=== PATIENT | female | born 1990 | race Caucasian/White ===

== ENCOUNTER 2024-08-11 03:09 | Emergency (ER) | payer OTHER ==
--- NOTE | 2024-08-11 03:59 | ED ---
General Adult HPI - General Chief complaint: Psychiatric Symptoms Stated complaint: Mental Health Time Seen by Provider: 08/11/24 03:26 Source: EMS Mode of arrival: EMS - History of Present Illness Initial comments: Patient is a 34-year-old female past medical history of bipolar depression presenting today for hallucinations. History is limited by patient's current psychiatric complaints and tangential thought process and speech. Per EMS report police were called to the home 4 times today by family. The patient states that she called the police 4 times because her boyfriend was calling her names and has "schizoaffective disorder and sometimes it gets out of control". Patient endorses over the last 6 months she has had worsening visual hallucinations stating that she will see a dog in the mall food ester like a person walking past her room. She understands that these are not real but they are becoming more persistent. She denies auditory hallucinations, thoughts of harming or killing herself or thoughts of harming or killing others. She believes that her increase hallucinations are due to an increase in her Effexor however when I asked her when her dose of Effexor was increased her thought process becomes tangential and she begins talking about her hypertension and lisinopril. She denies any new numbness, weakness, changes in vision, chest pain or abdominal pain. The patient herself states she does use marijuana but denies illicit drug use. EMS believe the patient has used meth today. Patient denies alcohol use. - Related Data Home Medications Medication Instructions Recorded Confirmed Divalproex Sodium [Depakote] 1 tab PO BID 05/23/14 05/23/14 Gabapentin [Neurontin] 1 tab PO QID 05/23/14 05/23/14 levETIRAcetam [Keppra] 1 tab PO BID 05/23/14 05/23/14 Allergies Allergy/AdvReac Type Severity Reaction Status Date / Time amoxicillin trihydrate Allergy Rash/Hives Verified 08/11/24 03:28 [From Augmentin] clindamycin Allergy Rash/Hives Verified 05/23/14 18:47 pineapple Allergy Anaphylaxis Verified 08/11/24 03:28 potassium clavulanate Allergy Rash/Hives Verified 08/11/24 03:28 [From Augmentin] Review of Systems ROS Statement: Those systems with pertinent positive or pertinent negative responses have been documented in the HPI. ROS Other: All systems not noted in ROS Statement are negative. Limitations: ROS unobtainable due to patients medical condition Past Medical History Past Medical History: Seizure Disorder Additional Past Medical History / Comment(s): MS History of Any Multi-Drug Resistant Organisms: None Reported Past Surgical History: Appendectomy Additional Past Surgical History / Comment(s): LEEP PROCEEDURE Past Psychological History: Bipolar Smoking Status: Vaper Past Alcohol Use History: None Reported Past Drug Use History: Marijuana General Exam - General Exam Comments Initial Comments: PE: CONSTITUTIONAL: No apparent distress, well appearing SKIN: Warm, dry, no jaundice, hives or petechiae EYES: Pupils are equally round, extraocular movements intact without nystagmus, clear conjunctiva, non-icteric sclera HENT: Normocephalic, atraumatic, moist mucus membranes, oropharynx clear without exudates NECK: , Full range of motion, normal appearance PULMONARY: Clear to auscultation without wheezes, rhonchi, or rales, normal excursion, no accessory muscle use and no stridor CARDIOVASCULAR: Regular rate, rhythm, normal S1 and S2. No appreciated murmurs, rubs or gallops. Strong radial pulses with intact distal perfusion. No lower extremity edema GASTROINTESTINAL: Soft, non-tender, non-distended, no palpable masses, no rebound or guarding. No hepatosplenomegaly GENITOURINARY: MUSCULOSKELETAL: Extremities have no gross deformity, no edema, redness, or swelling. No calf swelling ot TTP. NEUROLOGIC:_a/o x 3, GCS 15, normal mentation and speech. Moves all extremities x 4 without motor or sensory deficit PSYCHIATRIC:_normal mood and affect, thought process is tangential and disorganized, calm and cooperative, does not appear to be responding to internal stimuli Course Vital Signs 08/11/24 08/11/24 03:16 06:06 Temperature 98.7 F 98.0 F Pulse Rate 83 79 Respiratory 17 16 Rate Blood Pressure 111/90 113/78 O2 Sat by Pulse 100 94 L Oximetry Medical Decision Making - Medical Decision Making Was pt. sent in by a medical professional or institution (, PA, ECONOMIC MANAGER, urgent care, hospital, or residential...) When possible be specific @ -No Did you speak to anyone other than the patient for history (EMS, parent, family, police, friend...)? What history was obtained from this source @ -No Did you review nursing and triage notes (agree or disagree)? Why? @ -I reviewed and agree with nursing and triage notes Were old charts reviewed (outside hosp., previous admission, EMS record, old EKG, old radiological studies, urgent care reports/EKG's, residential records)? Report findings @ -No recent charts to review Differential Diagnosis (chest pain, altered mental status, abdominal pain women, abdominal pain men, vaginal bleeding, weakness, fever, dyspnea, syncope, headache, dizziness, GI bleed, back pain, seizure, CVA, palpatations, mental health, musculoskeletal)? @ -Differential Mental Health Depression, anxiety, bipolar, psychosis, schizophrenia, borderline personality, situational depression, adjustment disorder, behavioral disorder, substance abuse, medication reaction... This is not meant to be all-inclusive list X-rays interpreted by me (1pt min.). @ -None done CT interpreted by me (1pt min.). @ -None done U/S interpreted by me (1pt. min.). @ -None done What testing was considered but not performed or refused? (CT, X-rays, U/S, labs)? Why? @ -None What meds were considered but not given or refused? Why? @ -None Did you discuss the management of the patient with other professionals (professionals i.e. , PA, ECONOMIC MANAGER, lab, RT, psych nurse, social services aide, physical metallurgist, teacher, flight communications officer, case liner)? Give summary @ -No Was smoking cessation discussed for >3mins.? @ -No Was critical care preformed (if so, how long)? @ -No Were there social determinants of health that impacted care today? How? (Homelessness, low income, unemployed, alcoholism, drug addiction, transportation, low edu. Level, literacy, decrease access to med. care, detention, rehab)? @ -No Was there de-escalation of care discussed even if they declined (Discuss DNR or withdrawal of care, Hospice)? @ -No What co-morbidities impacted this encounter? (DM, HTN, Smoking, COPD, CAD, Cancer, CVA, ARF, Chemo, Hep., AIDS, mental health diagnosis, sleep apnea, morbid obesity)? @ -Bipolar depression Was patient admitted / discharged? Hospital course, mention meds given and route, prescriptions, significant lab abnormalities, going to OR and other pertinent info. @ -Hospital course Patient is a pleasant 34 female past medical history of bipolar depression presenting today for visual hallucinations. History of similar. Denies additional complaints. Possible meth use. On my assessment patient is well- appearing and in no acute distress. Calm and cooperative. Her speech and thought processes tangential however she is redirectable. She does not appear to be responding to internal stimuli, denies SI/HI. Blood alcohol negative. Will plan for UDS. Patient medically cleared for EPS evaluation. Patient evaluated by EPS RN, Annamaria, was recommended for outpatient treatment. Patient has an appointment scheduled for 9 AM tomorrow with her psychiatrist and therapist and will also follow-up with her neurologist. Annamaria did confirm that phone calls to PD today were legitimately due to patient's boyfriend taking too much Adderall and climbing on the roof and not for concerns regarding patient's behavior. Pt to go home with her stepfather. Annamaria was able to safety plan with patient and stepfather. Patient discharged in stable condition. In my medical judgment there is currently no evidence of an immediate life- threatening or surgical condition. Discharge is therefore indicated at this time. Undiagnosed new problem with uncertain prognosis? @ -No Drug Therapy requiring intensive monitoring for toxicity (Heparin, Nitro, Insulin, Cardizem)? @ -No Were any procedures done? @ -No Diagnosis/symptom? @ -Hallucinations Acute, or Chronic, or Acute on Chronic? @ -Acute Uncomplicated (without systemic symptoms) or Complicated (systemic symptoms)? @ -Uncomplicated Side effects of treatment? @ -No Exacerbation, Progression, or Severe Exacerbation? @ -No Poses a threat to life or bodily function? How? (Chest pain, [place], [place], pneumonia, PE, COPD, DKA, ARF, appy, cholecystitis, CVA, Diverticulitis, Homicidal, Suicidal, threat to staff... and all critical care pts) @ -No Disposition Clinical Impression: Hallucinations Disposition: HOME SELF-CARE Condition: Good Additional Instructions: Every disease is a spectrum and a small chance still exists that a serious condition could develop, for this reason, please monitor yourself closely for new, changing or worsening symptoms, auditory or visualizations that tell you to harm or kill yourself or harm or kill others or make you feel suicidal or homicidal, thoughts of suicide or homicide, being unable to care for yourself, feeling unsafe, inability to tolerate/keep down fluids or your medications, inability to follow up with outpatient providers as instructed and should you experience these symptoms or should you have any further concerns for your wellbeing please return to the ED or call 911 immediately. PLEASE call your primary care physician as soon as possible to arrange / discuss plan for followup appointment. Appointment in the next 1-3 days is strongly encouraged if possible. PLEASE let us know here before you leave if there is anything further we can do to be of any assistance. Take care and feel Better! Is patient prescribed a controlled substance at d/c from ED?: No Referrals: Marily Lagunas, PAC [Primary Care Provider] - 1-2 days
[2024-08-11 06:09] VITALS: BP 113/78; PULSE 79; RESP 16; TEMP 98
== END 2024-08-11 06:48 | disposition home or self-care (01) ==
LOC: EC 03:09
CPT/HCPCS: 82075; 99285